=== PATIENT | male | born 1950 | race Caucasian/White ===

== ENCOUNTER 2016-11-03 13:28 | Emergency (ER) | payer OTHER ==
[2016-11-03 13:34] VITALS: TEMP 98.8
--- NOTE | 2016-11-03 13:43 | CPEKG ---
Heart Rate: 79 RR Interval: 759 P-R Interval: 168 QRSD Interval: 86 QT Interval: 384 QTC Interval: 441 P Copen: 49 QRS Copen: -28 T Wave Copen: 38 EKG Severity - OTHERWISE NORMAL ECG - EKG Impression: SINUS RHYTHM EKG Impression: BORDERLINE LEFT AXIS DEVIATION Electronically Signed By: Brad Mayorga 03-Nov-2016 16:55:02
[2016-11-03] MEDS ORDERED: ASPIRIN 81 MG CHEWABLE TAB PO ONE (13:46)
[2016-11-03] MEDS ORDERED: NS 500 ML IV ONE (13:46)
[2016-11-03] MEDS ORDERED: ASPIRIN 81 MG CHEWABLE TAB ONE (13:53)
[2016-11-03 13:56] LABS: % IMMATURE GRANULYOCYTES 0.4 % (0.0-1.1); ABSOLUTE IMMATURE GRANULOCYTES 0.03 10^3/uL (0.00-0.10); ADD DIFF? NO; ADD MORPH? NO; ADD SCAN? NO; ATYPICAL LYMPHOCYTE FLAG 0 (0-99); FRAGMENT RBC FLAG 0 (0-99); HEMATOCRIT 47.5 % (40.0-51.0); HEMOGLOBIN 16.3 g/dL (13.7-17.5); LEFT SHIFT FLG 0 (0-99); LIPEMIA HEMOLYSIS FLAG 90 (0-99); MEAN CELL HEMOGLOBIN 31.6 pg (27.9-34.1); MEAN CELL HEMOGLOBIN CONCENTR. 34.3 g/dL (32.4-36.7); MEAN CELL VOLUME 92.1 fL (81.5-99.8); MEAN PLATELET VOLUME 11.1 fL (8.7-11.7); PLATELET CLUMPS FLAG 0 (0-99); PLATELET COUNT 233 10^3/uL (150-400); RED BLOOD CELL COUNT 5.16 10^6/uL (4.40-6.38); RED CELL DISTRIBUTION WIDTH 12.6 % (11.5-15.2)
[2016-11-03 14:07] LABS: ANION GAP 10 mEq/L (8-16); CALCIUM 9.2 mg/dL (8.5-10.4); CARBON DIOXIDE 25 mEq/l (22-31); CHLORIDE 106 mEq/L (97-110); CREATININE 0.8 mg/dL (0.7-1.3); GLOMERULAR FILTRATION RATE > 60; GLUCOSE 136 mg/dL (70-100); POTASSIUM 4.1 mEq/L (3.5-5.2); SODIUM 141 mEq/L (134-144)
[2016-11-03 14:12] LABS: APTT 28.1 SEC (23.0-38.0)
[2016-11-03 14:19] LABS: TROPONIN I < 0.012 ng/mL (0-0.034)
--- NOTE | 2016-11-03 14:22 | DX ---
Portable AP Upright Chest - November 03, 2016, at 1:55 p.m. Clinical History: 66-year-old male with chest and left arm pain, and anxiety. Comparison Study: CT imaging of the chest, dated June 16, 2016. Findings: Telemetry monitoring lead lines are noted. The cardiac and mediastinal silhouette are evin l in size. There is no focal infiltrate, atelectasis, pleural effusion, peripheral interstitial edema , or pneumothorax. There are some degenerative features of the spine. Impression: No acute abnormality.
--- NOTE | 2016-11-03 14:31 | EDPHY ---
H & P Time Seen by Provider: 11/03/16 13:44 HPI/ROS: HPI Chest pain. 66-year-old male by private vehicle. This patient was at his psychiatrist's office at approximately 10:00 a.m. when he developed substernal left-sided chest pain described as sharp and stabbing with radiation into the left shoulder and left arm. He has a prior history of a saddle pulmonary embolus from 2015. He is currently on Coumadin. His psychiatrist sent him directly to the emergency department. On arrival he was diaphoretic and very anxious. On my initial evaluation he is now more relaxed. He denies any significant pain at this time. He has not had any new shortness of breath. ROS: Constitutional: No fever, no chills. No weakness. Eyes: No discharge. No changes in vision. ENT: No sore throat. No nasal congestion or rhinorrhea. Respiratory: No cough. No shortness of breath. Cardiac: As above, no palpitations. Gastrointestinal: No abdominal pain, no vomiting, no diarrhea. Genitourinary: No hematuria. No dysuria or increased frequency with urination. Musculoskeletal: No back pain. No neck pain. No myalgias or arthralgias. Skin: No rashes. Neurological: No headache. No focal weakness or altered sensation. Past medical history: Hypertension, depression, anxiety, appendectomy, DVT, as above. Currently on Coumadin. Social history: Nonsmoker. Here by himself. Physical Exam: General Appearance: Alert, anxious. This patient is responding to questions appropriately and in full sentences. This patient appears well-hydrated and well-nourished. Eyes: Pupils equal and round no pallor or injection. No lid edema, erythema or injection. Respiratory: There are no retractions, lungs are clear to auscultation with good air movement bilaterally. Cardiovascular: Regular rate and rhythm. No murmur. Gastrointestinal: Abdomen is soft and nontender, no masses, bowel sounds normal. No focal tenderness at McBurney's point. No Thibodeaux sign. Neurological: Motor sensory function is grossly intact. Cranial nerves are normal. Gait is normal. Skin: Warm and dry, no rashes. Musculoskeletal: Neck is supple and nontender. Extremities are symmetrical. All joints range without pain or impingement. Psychiatric: No agitation. No depression. Database: EKG: EKG time is 1:41 p.m.; EKG shows a narrow complex normal sinus rhythm with a ventricular rate of 79. The CA, QRS, QT intervals are within normal limits. There are no ST-T wave changes indicative of ischemic or injury pattern. Borderline left axis deviation. No evidence of right heart strain. Interpreted by me. Imaging: Chest x-ray PA and lateral; the cardiac mediastinal silhouette is unremarkable. No evidence of infiltrate or pneumothorax. No acute cardiopulmonary disease process noted. Interpreted by me. Procedures: Emergency department course: IV placed. He was placed on a cardiac exercise specialist. EKG and chest x-ray performed. He was given 324 mg of chewed aspirin. 2:45 p.m., patient re-evaluated. Resting comfortably at this time. Denies any pain or shortness of breath. Results of his chest x-ray, EKG and lab work were discussed with him. I discussed admission for observation, serial troponins and provocative testing. He is refusing admission at this time. I reviewed my concerns with him thoroughly. In my professional opinion he understands the risks of leaving the emergency department prior to completion of his workup and against medical advice. Despite my urging he has decided to leave the emergency department. I have given him follow-up instructions with [facility] for re-evaluation and provocative testing. He stated that he would call them this afternoon for follow-up appointment. Return to emergency department precautions were also thoroughly reviewed with him. He was discharged against medical advice in stable and improved condition. Differential Diagnosis: The differential diagnosis on this patient includes but is not limited to anxiety reaction, acute coronary syndrome, pulmonary embolism, musculoskeletal chest pain. This represents a partial list of diagnoses considered. These considerations are based on history, physical exam, past history, reassessment and diagnostic testing. Smoking Status: Former smoker Constitutional: Initial Vital Signs Temperature (C) 37.1 C 11/03/16 13:30 Heart Rate 83 11/03/16 13:30 Respiratory Rate 16 11/03/16 13:30 Blood Pressure 138/88 H 11/03/16 13:30 O2 Sat (%) 96 11/03/16 13:30 O2 Delivery Mode Room Air Allergies/Adverse Reactions: No Known Allergies Allergy (Verified 09/10/16 11:28) Home Medications: Medication Instructions Recorded Zolpidem Tartrate [Ambien] 10 mg PO HS PRN 07/09/13 Cholecalciferol Vit D3 [Vitamin D3 1,000 units PO DAILY 04/25/15 (*)] Vitamin B Complex [B Complex] 1 each PO DAILY 04/25/15 Lisinopril 5 mg PO DAILY #30 tablet 04/29/15 Warfarin Sodium [Coumadin 5MG (*)] 5 mg PO DAILY16 #30 tab 04/29/15 Medical Decision Making - Data Points Laboratory Results: Laboratory Results 11/03/16 13:44 11/03/16 13:44 11/03/16 13:44 WBC 8.07 10^3/uL (3.80-9.50) RBC 5.16 10^6/uL (4.40-6.38) Hgb 16.3 g/dL (13.7-17.5) Hct 47.5 % (40.0-51.0) MCV 92.1 fL (81.5-99.8) MCH 31.6 pg (27.9-34.1) MCHC 34.3 g/dL (32.4-36.7) RDW 12.6 % (11.5-15.2) Plt Count 233 10^3/uL (150-400) MPV 11.1 fL (8.7-11.7) Neut % (Auto) 79.2 H % (39.3-74.2) Lymph % (Auto) 14.4 L % (15.0-45.0) Finney % (Auto) 4.7 % (4.5-13.0) Eos % (Auto) 0.6 % (0.6-7.6) Baso % (Auto) 0.7 % (0.3-1.7) Nucleat RBC Rel Count 0.0 % (0.0-0.2) Absolute Neuts (auto) 6.39 10^3/uL (1.70-6.50) Absolute Lymphs (auto) 1.16 10^3/uL (1.00-3.00) Absolute Monos (auto) 0.38 10^3/uL (0.30-0.80) Absolute Eos (auto) 0.05 10^3/uL (0.03-0.40) Absolute Basos (auto) 0.06 10^3/uL (0.02-0.10) Absolute Nucleated RBC 0.00 10^3/uL (0-0.01) Immature Gran % 0.4 % (0.0-1.1) Immature Gran # 0.03 10^3/uL (0.00-0.10) PT 20.0 H SEC (12.0-15.0) INR 1.70 H (0.83-1.16) APTT 28.1 SEC (23.0-38.0) D-Dimer < 0.27 ug/mLFEU (0.00-0.50) Sodium 141 mEq/L (134-144) Potassium 4.1 mEq/L (3.5-5.2) Chloride 106 mEq/L (97-110) Carbon Dioxide 25 mEq/l (22-31) Anion Gap 10 mEq/L (8-16) BUN 15 mg/dL (7-23) Creatinine 0.8 mg/dL (0.7-1.3) Estimated GFR > 60 Glucose 136 H mg/dL (70-100) Calcium 9.2 mg/dL (8.5-10.4) Troponin I < 0.012 ng/mL (0-0.034) Medications Given: Discontinued Medications Aspirin (Aspirin) 324 mg PO EDNOW ONE Stop: 11/03/16 13:47 Last Admin: 11/03/16 13:55 Dose: 324 mg Sodium Chloride (Ns) 500 mls @ 0 mls/hr IV ONCE ONE PRN Reason: As Directed Stop: 11/03/16 13:47 Last Admin: 11/03/16 13:55 Dose: 500 mls Departure - Departure Disposition: Home, Routine, Self-Care Clinical Impression: Chest pain Condition: Good Instructions: Chest Pain (ED) Additional Instructions: Read and follow provided instructions. Follow-up with acute care physical therapist, Dr. Tushar Alva or 1 of his partners at [facility] within the next 2-3 days for re-evaluation and stress testing as discussed. Your Coumadin is also likely under dosed and your INR should be repeated by your primary care physician or acute care physical therapist to adjust dosing accordingly. Return to the emergency department for any return of chest pain, shortness of breath or other serious concerns. Referrals: Tushar Alva MD [Medical Doctor] - As per Instructions
[2016-11-03 15:06] VITALS: BP 131/100; PULSE 67; RESP 16; O2SAT 98
== END 2016-11-03 15:06 | disposition home or self-care (01) ==
DX: R07.2 Precordial pain (principal); I10 Essential (primary) hypertension; Z79.01 Long term (current) use of anticoagulants; Z87.891 Personal history of nicotine dependence

== ENCOUNTER → 2019-04-14 | Outpatient (CLI) | payer OTHER, MEDICARE | LOC: EMCIMAGING 12:57 ==